=== PATIENT | male | born 1945 | race Two or more races ===

== ENCOUNTER 2018-09-08 08:13 | Outpatient (CLI) | payer OTHER | END 2018-09-08 08:20 | disposition home or self-care (01) | LOC: LAB 08:13 | DX: D64.89 Other specified anemias (principal); D68.8 Other specified coagulation defects; E03.8 Other specified hypothyroidism; Z01.810 Encounter for preprocedural cardiovascular examination; Z01.812 Encounter for preprocedural laboratory examination; R07.1 Chest pain on breathing ==